=== PATIENT | male | born 1995 | race African-American/Black ===

== ENCOUNTER 2020-03-21 19:22 | Emergency (ER) | payer SELFPAY ==
[2020-03-21 19:47] VITALS: BP 114/69; PULSE 69; TEMP 98.2; BMI 18.6
== END 2020-03-21 20:56 | disposition home or self-care (01) ==
LOC: JERFT 19:22
DX: S14.109A Unspecified injury at unspecified level of cervical spinal cord, initial encounter (principal); M54.16 Radiculopathy, lumbar region
CPT/HCPCS: 72100-TC-FY; 99283-25